=== PATIENT | male | born 1985 | race African-American/Black ===

== ENCOUNTER 2016-12-08 02:33 | Emergency (ER) | payer SELFPAY ==
[2016-12-08] MEDS ORDERED: KETOROLAC TROMETHAMINE INJ/PF 30 MG/1 ML SDV IV ONE (03:11)
[2016-12-08] MEDS ORDERED: NORMAL SALINE 1000 ML 1,000 ML IV ONE (03:11)
[2016-12-08] MEDS ORDERED: ONDANSETRON HCL INJ/PF 4 MG/2 ML SDV IV ONE (03:11)
--- NOTE | 2016-12-08 03:12 | ER Document Report ---
ED GI/ - General Chief Complaint: Abdominal Pain Stated Complaint: FLANK PAIN Time Seen by Provider: 12/08/16 03:04 Notes: Patient is a 31-year-old male who comes emergency department for chief complaint of pain in his mid to right upper abdomen, pain has been worsening over the course of 3 days. He states he has not eaten anything over the past 2 days, he states he was planning to do this anyway but he was not very hungry anyhow. He denies vomiting, flank pain, fever, he states he had a normal bowel movement yesterday. Past medical history of GERD, medicated for this, he smokes weed, he drinks occasionally, he denies any other medical history including any surgeries. TRAVEL OUTSIDE OF THE [place] IN LAST 30 DAYS: No - Related Data Allergies/Adverse Reactions: No Known Allergies Allergy (Unverified 12/08/16 02:43) Past Medical History - General Information source: Patient - Social History Smoking Status: Never Smoker Frequency of alcohol use: None Drug Abuse: None Lives with: Family Family History: Hyperlipidemia, Hypertension, Malignancy - Medical History Medical History: Negative Renal/ Medical History: Denies: Hx Peritoneal Dialysis Surgical Hx: Negative - Immunizations Immunizations up to date: No Hx Diphtheria, Pertussis, Tetanus Vaccination: No Review of Systems - Review of Systems Constitutional: No symptoms reported EENT: No symptoms reported Cardiovascular: No symptoms reported Respiratory: No symptoms reported Gastrointestinal: See HPI Genitourinary: No symptoms reported Male Genitourinary: No symptoms reported Musculoskeletal: No symptoms reported Skin: No symptoms reported Hematologic/Lymphatic: No symptoms reported Neurological/Psychological: No symptoms reported Physical Exam - Vital signs Vitals: Temp Pulse Resp BP Pulse Ox 98.4 F 91 13 111/76 96 12/08/16 02:36 12/08/16 02:36 12/08/16 02:36 12/08/16 02:36 12/08/16 02:36 Interpretation: Normal - General General appearance: Appears well, Alert - HEENT Head: Normocephalic, Atraumatic Eyes: Normal Pupils: PERRL - Respiratory Respiratory status: No respiratory distress Chest status: Nontender Breath sounds: Normal. No: Decreased air movement, Wheezing Chest palpation: Normal - Cardiovascular Rhythm: Regular Heart sounds: Normal auscultation Murmur: No - Abdominal Inspection: Normal Distension: No distension Bowel sounds: Normal Tenderness: Tender - Patient has tender with some wincing over the mid to right upper abdomen on exam, remaining abdomen is nontender, no guarding, no rigidity , no rebound tenderness Organomegaly: No organomegaly - Back Back: Normal, Nontender. No: Tender, CVA tenderness - Extremities General upper extremity: Normal inspection, Nontender, Normal color, Normal ROM , Normal temperature General lower extremity: Normal inspection, Nontender, Normal color, Normal ROM , Normal temperature, Normal weight bearing. No: Silvio's sign - Neurological Neuro grossly intact: Yes Cognition: Normal Orientation: AAOx4 Alger Coma Scale Eye Opening: Spontaneous Vera Coma Scale Verbal: Oriented Alger Coma Scale Motor: Obeys Commands Alger Coma Scale Total: 15 Speech: Normal Motor strength normal: LUE, RUE, LLE, RLE Sensory: Normal - Psychological Associated symptoms: Normal affect, Normal mood - Skin Skin Temperature: Warm Skin Moisture: Dry Skin Color: Normal Course - Re-evaluation Re-evalutation: CBC, chemistry, lipase, urinalysis are all unremarkable. Ultrasound is normal including liver, gallbladder, pancreas, ducts. On reexamination combined with these findings I suspect patient's symptoms are actually from his abdominal wall which actually appears to be sore in the rectus muscles. Patient actually states agreement with this, discussed negative workup, discussed recommendations , discussed concerning symptoms that he would need to return for, patient states understanding and agreement. - Vital Signs Vital signs: Temp Pulse Resp BP Pulse Ox 97.6 F 70 18 116/82 97 12/08/16 06:30 12/08/16 06:30 12/08/16 06:30 12/08/16 06:30 12/08/16 06:30 - Laboratory Result Diagrams: 12/08/16 03:20 12/08/16 03:20 Laboratory results interpreted by me: 12/08/16 03:20 Calcium 10.5 H Discharge - Discharge Clinical Impression: Abdominal pain Qualifiers: Abdominal location: upper abdomen, unspecified Qualified Code(s): R10.10 - Upper abdominal pain, unspecified Condition: Stable Disposition: HOME, SELF-CARE Additional Instructions: Your ultrasound, labs, urine are all unremarkable. No evidence of kidney, liver , gallbladder, or other abnormality. My impression is that your pain is from the muscles of the abdominal wall. Recommendation is to apply heat to the area , take the prescribed medications, avoid lifting and twisting until symptoms resolve. Follow-up with primary care. Return to emergency department if you worsen including vomiting, fever, black stools, or any other concerning symptoms. Prescriptions: Methocarbamol [Robaxin 750 mg Tablet] 750 mg PO Q6 #20 tablet Naproxen [Naprosyn 375 Mg Tablet] 375 mg PO BID #20 tablet
[2016-12-08 03:30] LABS: ABSOLUTE BASOPHILS # (AUTO) 0.1 10^3/uL (0.0-0.2); ABSOLUTE EOSINOPHILS # (AUTO) 0.1 10^3/uL (0.0-0.6); ABSOLUTE LYMPHOCYTES (AUTO) 2.9 10^3/uL (0.5-4.7); ABSOLUTE MONOCYTES (AUTO) 0.9 10^3/uL (0.1-1.4); ABSOLUTE NEUT (AUTO) 3.9 10^3/uL (1.7-8.2); BASOPHILS % (AUTO) 0.7 % (0-2); EOSINOPHILS % (AUTO) 1.2 % (0-6); HEMOGLOBIN 15.9 g/dL (13.5-17.0); HGB HCT DIFFERENCE 0.7; LYMPHOCYTES % (AUTO) 37.1 % (13-45); MEAN CORPUSCULAR HEMOGLOBIN 28.8 pg (27.0-33.4); MEAN CORPUSCULAR HGB CONC 33.8 g/dL (32.0-36.0); MEAN CORPUSCULAR VOLUME 85 fl (80-97); MONOCYTES % (AUTO) 11.3 % (3-13); RED BLOOD COUNT 5.52 10^6/uL (4.35-5.55); RED CELL DISTRIBUTION WIDTH 13.8 % (11.5-14.0); SEGMENTED NEUTROPHILS % (AUTO) 49.7 % (42-78); WHITE BLOOD COUNT 7.8 10^3/uL (4.0-10.5)
[2016-12-08 03:41] LABS: ALANINE AMINOTRANSFERASE 43 U/L (21-72); ALBUMIN 4.5 g/dL (3.5-5.0); ALKALINE PHOSPHATASE 75 U/L (38-126); ANION GAP 11 (5-19); ASPARTATE AMINO TRANSFERASE 30 U/L (17-59); BILIRUBIN,DIRECT 0.3 mg/dL (0.0-0.4); BILIRUBIN,TOTAL 0.7 mg/dL (0.2-1.3); BLOOD UREA NITROGEN 8 mg/dL (7-20); CALCIUM 10.5 mg/dL (8.4-10.2); CARBON DIOXIDE 30 mmol/L (22-30); CHLORIDE 102 mmol/L (98-107); GLUCOSE 86 mg/dL (75-110); LIPASE 123.6 U/L (23-300); POTASSIUM 4.4 mmol/L (3.6-5.0); SODIUM 142.5 mmol/L (137-145); TOTAL PROTEIN 7.4 g/dL (6.3-8.2)
--- NOTE | 2016-12-08 04:40 | RADIOLOGY REPORT (SQ) ---
EXAM DESCRIPTION: U/S ABDOMEN LIMITED W/O DOP CLINICAL HISTORY: 31 years, Male, ruq pain COMPARISON: None. TECHNIQUE: Grayscale, color Doppler and spectral Doppler waveform analysis techniques were all utilized to perform this examination. LIMITATIONS: None. FINDINGS: The right hepatic lobe appears normal and measures 16.3 cm in greatest sagittal dimension. The fluid-filled gallbladder appears normal. No hyperechoic mobile shadowing gallstones, gallbladder wall thickening or pericholecystic fluid. Greatest gallbladder wall thickness equals 2.3 mm. Common duct is normal and measures 3.6 mm in greatest diameter. No intra or extrahepatic biliary ductal dilatation. The pancreatic head and body are grossly normal. Pancreatic tail is obscured by bowel gas. Partially visualized abdominal aorta and inferior vena cava appear grossly normal. Greatest AP diameter of the infrarenal abdominal aorta equals 1.6 cm. There is normal hepatopedal blood flow in the portal vein using color Doppler and spectral Doppler waveform analysis techniques. Partially visualized right kidney is normal and measures 11.4 cm in greatest sagittal dimension. No ascites. IMPRESSION: 1. No ultrasonographic evidence of cholelithiasis or cholecystitis. 2. No intra or extrahepatic biliary ductal dilatation. 3. No right urinary system obstruction. 2011 [employer]- All Rights Reserved
[2016-12-08 05:41] LABS: APPEARANCE,URINE CLEAR; BILIRUBIN,URINE NEGATIVE (NEGATIVE); GLUCOSE, URINE NEGATIVE (NEGATIVE); KETONES,URINE NEGATIVE (NEGATIVE); LEUKOCYTE ESTERASE,URINE NEGATIVE (NEGATIVE); NITRITE,URINE NEGATIVE (NEGATIVE); PROTEIN,URINE NEGATIVE (NEGATIVE); URINE SPECIFIC GRAVITY 1.005; UROBILINOGEN,URINE NEGATIVE mg/dL (<2.0)
[2016-12-08 06:31] VITALS: BP 116/82
== END 2016-12-08 06:31 | disposition home or self-care (01) ==
LOC: ER 02:33
DX: R10.10 Upper abdominal pain, unspecified (principal); K21.9 Gastro-esophageal reflux disease without esophagitis
CPT/HCPCS: 99284; 96361; 96374; 96375; 36415; 83690; 85025; 80053; 81001; 76705; J1885; J2405; J7030